=== PATIENT | male | born 1955 | race Caucasian/White ===

== ENCOUNTER → 2018-05-29 13:30 | Outpatient (POV) | payer MEDICARE, SELFPAY | PROVIDERS: Visit Provider Internal Medicine | DX: Z00.00 Encounter for general adult medical examination without abnormal findings (principal) ==

== ENCOUNTER → 2018-09-25 12:40 | Outpatient (CLI) | payer MEDICARE, SELFPAY ==
--- NOTE | 2018-09-25 12:48 | CT_ITS ---
EXAM: CT LUNG LOW DOSE WO CONTRAST . HISTORY: 2 pack per day for 48 years = 96 pack-year TECHNIQUE: The exam was performed on a [employer] Light Speed [address] scanner using 3.0 mGy CTDI. A low dose helical CT CHEST was performed on a multi-detector scanner. All CT scans at this facility use one or more dose reduction techniques, viz.: automated exposure control, ma/kV adjustment per patient size (including targeted exams where dose is matched to indication, i.e. head) or iterative reconstruction technique. The LDCT was performed in a facility that meets the criteria for the screening program. Data regarding this exam was submitted to [employer] which is an approved registry. The order for this exam indicates that it came as a result of a lung cancer screening counseling shard decision-making visit that included all the elements required of such a visit including smoking cessation. The radiologist interpreting this exam meets the CMS criteria for the LDCT lung cancer screening program. The exam is reported using the Lung-RADS classification scale and reported to the ACR registry. NOTE: This study was performed for the specific purposes of lung cancer screening and is not an alternative to diagnostic chest CT. RADIATION DOSE: CTDI vol(CT dose Index-volume) = 2.9mGy DLP (Dose Length Product) = 117.24 mGy-cm COMPARISON is made to previous CT study from April 2017, November 2015, November 2014 FINDINGS Mild to moderate emphysematous changes are seen with hyperexpansion lung sol. mild centrilobular emphysema in the upper lobes. Borderline thickening of central airways no intrabronchial findings. LUNG SOL RIGHT LUNG: ..Stable appearing 6 mm nodular density at the periphery the right lower lobe axial image 62 .Stable 8.5 mm nodule at the periphery of the right middle lobe axial slice 71. This is been present since 2014 with a little if any change in size.. . Scattered Minimal linear areas of pleural-parenchymal scarring at the periphery of the right lung. ... Slight coarsening markings at the right middle lobe anteriorly which I believe reflects some mild likely postinflammatory changes. Similar appearance to 2017 CT.. . However just superior at RUL there is a a small subtle new vague patchy area of minimal density measuring 7 mm is seen just above, disc superior to the minor fissure, axial image 49.. Sagittal 23 coronal 35... This is the most notable new notable feature. It could be a small postinflammatory feature but warrants follow-up. LEFT LUNG tiny, subtle 3.7 mm nodule at the posterior aspect of the L UL unchanged since prior studies.. Sagittal slice 58, .. No pleural lesions or thickening. Mild degenerative changes lower T-spine. MEDIASTINUM. No significant hilar nor mediastinal adenopathy. No new findings in this regard. MinimalCalcified right hilar nodes reflecting old granulomatous disease. aorta measuring up to 4 cm maximum diameter. Stable. Heart normal size coronary artery calcifications most evident at left main and proximal most LAD. Upper abdomen unremarkable IMPRESSION: 1. Mild to moderate emphysema again noted with mild hyperexpansion 2. New wispy 7 mm density right upper lobe just superior to the minor fissure. Tend to favor small postinflammatory focus. However I follow-up CT chest in 6-9 months is suggested to confirm stability (LUNG-RADS category 3) 3. The other previously seen nodules bilaterally have remained stable since studies dating back to 2017, 2016, 2015 . Largest of these discrete nodule is seen at the periphery of the right middle lobe measuring up to 8.5 mm. Unchanged when measured from the same points. 4. RECOMMENDATIONS: 6-9 mo
== END ==
PROVIDERS: PCP Nurse Practitioner; Visit Provider Internal Medicine
DX: Z12.2 Encounter for screening for malignant neoplasm of respiratory organs (principal); Z87.891 Personal history of nicotine dependence; J34.9 Unspecified disorder of nose and nasal sinuses

== ENCOUNTER → 2019-04-05 12:38 | Outpatient (CLI) | payer MEDICARE, SELFPAY ==
--- NOTE | 2019-04-05 12:40 | CT_ITS ---
PROCEDURE: CT CHEST WO CON CLINICAL INDICATION: MULTIPLE PULMONARY NODULES COMPARISON: [facility] CT CHEST W/O CONTRAST from 12/16/2015 TECHNIQUE: Axial images obtained with sagittal and coronal reformats. All CT scans at the facility use one or more dose reduction, viz: automated exposure control, ma/kV adjustment per patient size (including targeted exams where dose is matched to indication, i.e. head), or iterative reconstruction technique. FINDINGS: HEART: Unremarkable. Normal heart size. No significant pericardial effusion. MEDIASTINAL AND HILAR STRUCTURES: No mediastinal or hilar mass evident. No dominant adenopathy. There are small calcified right hilar nodes which were noted previously. AORTA: No acute finding. No thoracic aortic aneurysm or dissection evident there is minimal arteriosclerotic calcification of the aortic arch. LUNGS:The lung chan are somewhat hyperexpanded and appear clear of infiltrate. The noncalcified subpleural nodule right lower lobe seen previously has increased in size slightly possibly 2 mm since the previous exam 12/16/2015. This would be too small for adequate evaluation on PET scanning. There is another small noncalcified nodule right lower lobe which is stable and unchanged from the previous exam. PLEURAL SPACES: No significant effusion. No evidence of pneumothorax. BONY STRUCTURES: No acute bony abnormalities apparent. LYMPH NODES: No enlarged lymph nodes evident. UPPER ABDOMEN: Unremarkable. ADDITIONAL FINDINGS: There is prominent multilevel degenerate changes of the thoracic spine.. IMPRESSION: Evidence of old granulomatous disease, possible interval increase in size of a small right subpleural pulmonary nodule too small for evaluation with PET scanning and recommended patient return for follow-up CT scan of the chest in 6 months to evaluate interval stability. Dictated by: Dr. Edgard Quigley MD 04/05/2019 13:[address] Edgard Quigley MD in [place] 04/05/2019 13:44
== END ==
PROVIDERS: PCP Nurse Practitioner; Visit Provider Internal Medicine
DX: R91.8 Other nonspecific abnormal finding of lung field (principal)
CPT/HCPCS: 71250